=== PATIENT | female | born 1955 | race African-American/Black ===

== ENCOUNTER 2016-09-05 07:36 | Day surgery (SDC) | payer MEDICARE, MEDICAID ==
[~2016-09-05] VITALS: Ht 149.9 cm; Wt 71.2 kg
[~2016-09-05 07:36] MED LIST: AMLODIPINE5 MG PO; ATENOLOL25 MG PO; CYMBALTA20 MG PO; CYMBALTA60 MG PO; DILAUDID 2MG2 MG/TA1 PO; DILAUDID 2MG2 MG/TAB PO; LISINOP/HCTZ1 TAB PO; LORTAB 10-325 M1 TAB PO; METFORMIN500 M1 PO; PRILOSEC20 MG PO; TRAMADOL HCL50 MG PO
[2016-09-05 10:09] VITALS: BP 152/53
== END 2016-09-05 10:07 | disposition home or self-care (01) ==
LOC: ENDO 07:36 → ORM 17:45 → ENDO 17:45
PROVIDERS: ATTEND Internal Medicine Gastroenterology
PROC: 0DBK8ZX Excision of Ascending Colon, Via Natural or Artificial Opening Endoscopic, Diagnostic (ICD-10-PCS; principal; 2016-09-05)
PROC: 0DBN8ZX Excision of Sigmoid Colon, Via Natural or Artificial Opening Endoscopic, Diagnostic (ICD-10-PCS; 2016-09-05)
PROC: 0DBL8ZX Excision of Transverse Colon, Via Natural or Artificial Opening Endoscopic, Diagnostic (ICD-10-PCS; 2016-09-05)
PROC: 0DBP8ZX Excision of Rectum, Via Natural or Artificial Opening Endoscopic, Diagnostic (ICD-10-PCS; 2016-09-05)
DX: R19.5 Other fecal abnormalities (principal); K62.5 Hemorrhage of anus and rectum; K64.4 Residual hemorrhoidal skin tags; K63.5 Polyp of colon; K62.1 Rectal polyp; D12.2 Benign neoplasm of ascending colon; D12.5 Benign neoplasm of sigmoid colon; K22.70 Barrett's esophagus without dysplasia; K29.70 Gastritis, unspecified, without bleeding; K44.9 Diaphragmatic hernia without obstruction or gangrene; K21.9 Gastro-esophageal reflux disease without esophagitis; K64.8 Other hemorrhoids; K83.8 Other specified diseases of biliary tract; R14.0 Abdominal distension (gaseous); F32.9 Major depressive disorder, single episode, unspecified; M79.7 Fibromyalgia; E78.00 Pure hypercholesterolemia, unspecified; I10 Essential (primary) hypertension; Z86.010 Personal history of colon polyps

== ENCOUNTER 2017-01-17 10:29 | Emergency (ER) | payer MEDICARE, MEDICAID ==
[~2017-01-17] VITALS: Ht 149.9 cm; Wt 71.0 kg
[2017-01-17 11:26] LABS: HEMATOCRIT 41.7 % (37.0-47.0); HEMOGLOBIN 13.9 g/dl (12.0-16.0); IMMATURE GRANULOCYTES 0.5 % (0.0-1.0); MEAN CELL VOLUME 86.7 fL CALC (80.0-100.0); MEAN CORPUSCULAR HGB 28.9 pG CALC (26.0-32.0); MEAN CORPUSCULAR HGB CONC 33.3 g/L CALC (32.0-36.0); NEUT# 4.92 thou/uL (2.00-7.15); RED BLOOD COUNT 4.81 mill/uL (4.20-5.60); RED CELL DISTRI WIDTH 14.9 % (11.5-15.5)
[2017-01-17 11:38] LABS: ALBUMIN 4.6 g/dL (3.2-5.0); ALKALINE PHOSPHATASE 91 u/l (38-126); ANION GAP 18 (6-22 (CALC)); BILIRUBIN, TOTAL 1.3 mg/dL (0.0-1.4); BUN 13 mg/dL (8-23); BUN/CREATININE RATIO 19 (12-20 (CALC)); CALCIUM 9.9 mg/dL (8.4-10.2); CARBON DIOXIDE 22 mmol/l (22-30); CHLORIDE 106 mmol/l (95-108); CREATININE 0.7 mg/dL (0.5-1.0); GFR > 60 ML/MIN (>=60 (CALC)); GFR FOR AFR.AMER. > 60 ML/MIN (>=60 (CALC)); GLUCOSE 106 mg/dL (82-115); POTASSIUM 5.3 mmol/l (3.5-5.1); SGOT/AST 48 u/l (9-36); SGPT/ALT 50 u/l (11-66); SODIUM 141 mmol/l (137-146)
[2017-01-17 12:59] LABS: URINE BILIRUBIN - DIPSTICK NEGATIVE (NEGATIVE); URINE BLOOD DIPSTICK NEGATIVE (NEGATIVE); URINE CLARITY CLEAR; URINE COLOR YELLOW; URINE GLUCOSE - DIPSTICK NEGATIVE (NEGATIVE); URINE KETONE NEGATIVE (NEGATIVE); URINE LEUK ESTERASE NEGATIVE (NEGATIVE); URINE NITRITE - DIPSTICK NEGATIVE (Negative); URINE PROTEIN - DIPSTICK NEGATIVE (NEG-TRACE); URINE UROBILINOGEN - DIPSTICK 0.2 E.U./dL (0.2)
[2017-01-17] MEDS ORDERED: FLEXERIL5 MG PO (13:13)
[2017-01-17] MEDS ORDERED: MOTRIN400 MG PO (13:13)
[2017-01-17 13:30] VITALS: BP 189/87
[2017-01-22] MEDS ORDERED: FLEXERIL5 MG PO (12:53)
[2017-01-22] MEDS ORDERED: TRI-BUFF ASA325 M2 PO (12:53)
[2017-01-22] MEDS ORDERED: TRAMADOL HCL50 MG PO (12:54)
[2017-01-22] MEDS ORDERED: METHYLPREDNISOLONE ACETATE IJ (12:55)
== END 2017-01-17 13:35 | disposition home or self-care (01) ==
LOC: ED 10:29
PROVIDERS: Family Medicine
DX: M54.5 Low back pain (principal); I10 Essential (primary) hypertension; E11.9 Type 2 diabetes mellitus without complications; F17.210 Nicotine dependence, cigarettes, uncomplicated
CPT/HCPCS: Q9967

== ENCOUNTER 2017-01-23 09:56 | Day surgery (SDC) | payer MEDICARE, MEDICAID ==
[~2017-01-23] VITALS: Ht 149.9 cm; Wt 72.6 kg
[~2017-01-23 09:56] MED LIST changes: +FLEXERIL5 MG PO; +METHYLPREDNISOLONE ACETATE IJ; +MOTRIN400 MG PO; +TRI-BUFF ASA325 M2 PO
[2017-01-23 12:04] VITALS: BP 158/67
== END 2017-01-23 12:18 | disposition home or self-care (01) ==
LOC: ENDO 09:56 → ORM 11:45 → ENDO 12:18 → ORM 12:45
PROVIDERS: ATTEND Internal Medicine Gastroenterology
PROC: 0DB48ZX Excision of Esophagogastric Junction, Via Natural or Artificial Opening Endoscopic, Diagnostic (ICD-10-PCS; principal; 2017-01-23)
PROC: 0DB78ZX Excision of Stomach, Pylorus, Via Natural or Artificial Opening Endoscopic, Diagnostic (ICD-10-PCS; 2017-01-23)
DX: K22.70 Barrett's esophagus without dysplasia (principal); R14.0 Abdominal distension (gaseous); K21.9 Gastro-esophageal reflux disease without esophagitis; K29.50 Unspecified chronic gastritis without bleeding; K44.9 Diaphragmatic hernia without obstruction or gangrene; Q40.8 Other specified congenital malformations of upper alimentary tract; K25.9 Gastric ulcer, unspecified as acute or chronic, without hemorrhage or perforation

== ENCOUNTER 2017-02-27 11:56 | Day surgery (SDC) | payer MEDICARE, MEDICAID ==
[~2017-02-27 11:56] MED LIST changes: +ADULT ASPIRIN E81 MG PO; +DEXILANT30 MG PO; +FLONASE AL50 MCG/ACT NAB; -TRI-BUFF ASA325 M2 PO
== END 2017-02-27 12:15 | disposition home or self-care (01) ==
LOC: ENDO 11:56 → ORM 12:15 → ENDO 12:15
PROVIDERS: ATTEND Internal Medicine Gastroenterology
DX: Z53.8 Procedure and treatment not carried out for other reasons (principal); Z86.010 Personal history of colon polyps; R19.5 Other fecal abnormalities

== ENCOUNTER 2017-04-03 07:33 | Day surgery (SDC) | payer MEDICARE, MEDICAID ==
[~2017-04-03] VITALS: Ht 149.9 cm; Wt 71.2 kg
[2017-04-03 10:04] VITALS: BP 136/71
== END 2017-04-03 09:55 | disposition home or self-care (01) ==
LOC: ENDO 07:33 → ORM 11:15 → ENDO 11:15
PROVIDERS: ATTEND Internal Medicine Gastroenterology
PROC: 0DBK8ZX Excision of Ascending Colon, Via Natural or Artificial Opening Endoscopic, Diagnostic (ICD-10-PCS; principal; 2017-04-03)
PROC: 0DBL8ZX Excision of Transverse Colon, Via Natural or Artificial Opening Endoscopic, Diagnostic (ICD-10-PCS; 2017-04-03)
PROC: 0DBN8ZX Excision of Sigmoid Colon, Via Natural or Artificial Opening Endoscopic, Diagnostic (ICD-10-PCS; 2017-04-03)
PROC: 0DBP8ZX Excision of Rectum, Via Natural or Artificial Opening Endoscopic, Diagnostic (ICD-10-PCS; 2017-04-03)
DX: R19.5 Other fecal abnormalities (principal); R14.0 Abdominal distension (gaseous); K63.5 Polyp of colon; K62.1 Rectal polyp; D12.3 Benign neoplasm of transverse colon; K22.70 Barrett's esophagus without dysplasia; K29.70 Gastritis, unspecified, without bleeding; K44.9 Diaphragmatic hernia without obstruction or gangrene; K21.9 Gastro-esophageal reflux disease without esophagitis; I10 Essential (primary) hypertension; E78.00 Pure hypercholesterolemia, unspecified; F32.9 Major depressive disorder, single episode, unspecified; M79.7 Fibromyalgia; K64.8 Other hemorrhoids; K80.50 Calculus of bile duct without cholangitis or cholecystitis without obstruction; Z86.010 Personal history of colon polyps; K64.4 Residual hemorrhoidal skin tags; K57.90 Diverticulosis of intestine, part unspecified, without perforation or abscess without bleeding

== ENCOUNTER 2017-04-21 13:15 | Emergency (ER) | payer MEDICARE, MEDICAID ==
[~2017-04-21] VITALS: Ht 149.9 cm; Wt 72.0 kg
[2017-04-21] MEDS ORDERED: CEPHALEXIN500 MG PO (16:13)
[2017-04-21] MEDS ORDERED: INDOCIN25 MG PO (16:13)
[2017-04-21 16:25] VITALS: BP 176/95
== END 2017-04-21 16:26 | disposition home or self-care (01) ==
LOC: ED 13:15
DX: R09.1 Pleurisy (principal); I10 Essential (primary) hypertension; E11.9 Type 2 diabetes mellitus without complications; E78.00 Pure hypercholesterolemia, unspecified; K21.9 Gastro-esophageal reflux disease without esophagitis; K22.70 Barrett's esophagus without dysplasia; K44.9 Diaphragmatic hernia without obstruction or gangrene; F32.9 Major depressive disorder, single episode, unspecified

== ENCOUNTER 2018-02-08 16:00 | Outpatient (RCR) | payer MEDICARE, MEDICAID ==
[~2018-02-08 16:00] MED LIST changes: +CEPHALEXIN500 MG PO; +INDOCIN25 MG PO
== END 2018-02-08 17:00 | disposition home or self-care (01) ==
LOC: PT 16:00
PROVIDERS: ATTEND Physician Assistant Medical
DX: M54.42 Lumbago with sciatica, left side (principal); M17.2 Bilateral post-traumatic osteoarthritis of knee

== ENCOUNTER 2018-06-06 17:34 | Emergency (ER) | payer MEDICARE, MEDICAID ==
[~2018-06-06] VITALS: Ht 152.4 cm; Wt 72.0 kg
[2018-06-06] MEDS ORDERED: BACTROBAN TOP (18:36)
[2018-06-06] MEDS ORDERED: LAMISIL AT1 % EX (18:36)
[2018-06-06 18:43] VITALS: BP 171/98
== END 2018-06-06 18:46 | disposition home or self-care (01) ==
LOC: ED 17:34
DX: B35.4 Tinea corporis (principal)

== ENCOUNTER → 2018-06-28 | Outpatient (REF) | payer MEDICARE, MEDICAID ==
[~2018-06-28] VITALS: Ht 152.4 cm; Wt 75.7 kg
[~2018-06-28] MED LIST changes: +BACTROBAN TOP; +EQL IBUPROFEN200 MG PO; +LAMISIL AT1 % EX; +LISINOPRIL20 MG PO; +MOMETASONE50 MCG/ACT IN; +OXYCODONE HCL5 MG PO; +PHENERGAN25 MG/TAB PO; +SINGULAIR10 MG PO
[2018-06-28 09:26] VITALS: BP 163/81
== END | disposition home or self-care (01) ==
LOC: PO 08:46 → ORM 09:00
PROVIDERS: ATTEND Internal Medicine Gastroenterology
DX: K22.70 Barrett's esophagus without dysplasia (principal); K21.9 Gastro-esophageal reflux disease without esophagitis; I10 Essential (primary) hypertension; E11.9 Type 2 diabetes mellitus without complications; Z90.49 Acquired absence of other specified parts of digestive tract; Z98.890 Other specified postprocedural states

== ENCOUNTER → 2018-06-29 | Outpatient (REF) | payer MEDICARE, MEDICAID ==
[2018-06-29 10:12] LABS: BARBITURATES NEGATIVE (NEGATIVE); COCAINE NEGATIVE (NEGATIVE); METHADONE NEGATIVE (NEGATIVE); OXCYCODONE NEGATIVE (NEGATIVE); TETRAHYDROCANNABIONOL NEGATIVE (NEGATIVE); TRICYLIC ANTIDEPRESSANTS NEGATIVE (NEGATIVE)
[2018-06-29 10:15] VITALS: BP 159/105
== END | disposition home or self-care (01) ==
LOC: PAIN/MGT 09:49
PROVIDERS: ATTEND Anesthesiology Pain Medicine
DX: Z51.81 Encounter for therapeutic drug level monitoring (principal); Z79.891 Long term (current) use of opiate analgesic

== ENCOUNTER 2018-07-02 06:32 | Day surgery (SDC) | payer MEDICARE, MEDICAID ==
[~2018-07-02] VITALS: Ht 149.9 cm; Wt 75.7 kg
[~2018-07-02 06:32] MED LIST changes: -OXYCODONE HCL5 MG PO; -PHENERGAN25 MG/TAB PO
[2018-07-02 09:29] VITALS: BP 128/62
== END 2018-07-02 09:40 | disposition home or self-care (01) ==
LOC: ENDO 06:32 → ORM 08:15 → ENDO 08:15
PROVIDERS: ATTEND Internal Medicine Gastroenterology
PROC: 0DB48ZX Excision of Esophagogastric Junction, Via Natural or Artificial Opening Endoscopic, Diagnostic (ICD-10-PCS; principal; 2018-07-02)
DX: K21.9 Gastro-esophageal reflux disease without esophagitis (principal); K22.70 Barrett's esophagus without dysplasia; K29.70 Gastritis, unspecified, without bleeding; K25.9 Gastric ulcer, unspecified as acute or chronic, without hemorrhage or perforation; K44.9 Diaphragmatic hernia without obstruction or gangrene; I10 Essential (primary) hypertension

== ENCOUNTER 2018-07-08 08:48 | Inpatient (IN) | payer MEDICARE, MEDICAID ==
[~2018-07-08] VITALS: Ht 149.9 cm; Wt 80.0 kg
[2018-07-12] VITALS (9 sets, daily range): BP systolic 145–178; BP diastolic 78–96
--- NOTE | 2018-07-12 11:31 | NUR ---
PT ARRIVED ON UNIT VIA STRETCHER TRANSPORTED BY OR STAFF @ 1131, TRANSFERRED WITH MAX ASSIST TO BED, LETHARGIC AND DISORIENTED, UNABLE TO KEEP AWAKE, C/O RIGHT KNEE PAIN, DRESSING TO KNEE CDI WITH ICE PACK IN PLACE, IVF INFUSING, CALL MACKEY IN REACH, FAMILY MEMBERS ST BEDSIDE AND ENCOURAGED TO ALLOW PT TO REST FOR A WHILE, WILL CONTINUE TO MONITOR.
--- NOTE | 2018-07-12 16:00 | NUR ---
PT AWAKE ALERT AND ORIENTED SITTING UP IN BED, PHYSICAL THERAPIST EVAL AND TREATED, PAIN CONCERNS ADDRESSED, ASSISTED TO BY AND BACK TO BED, ALL NEEDS ADDRESSED.
--- NOTE | 2018-07-12 19:00 | NUR ---
RECEIVED REPORT FROM DAY NURSES. PT RESTING IN BED WITH FAMILY MEMBER AT BEDSIDE. NO NEEDS AT HTIS TIME. CALL MACKEY IN REACH. WILL CONTINUE TO MONITOR.
--- NOTE | 2018-07-12 19:00 | NUR ---
PT WATCHING TV WITH FAMILY MEMBER AT BEDSIDE.C/O MILD PAIN TO RIGHT KNEE. TRACE EDEMA NOTED TO KNEE MARILUZ BANDAGE IS CDI. ASSESMENT COMPLETED AT THIS TIME. PT UP TO BSC WITH WALKER, PT TOLERATED WELL. NO OTHER NEEDS AT THIS TIME. CALL MACKEY IN REACH. WILL CONTINUE TO MONITOR.
[2018-07-13] VITALS (7 sets, daily range): BP systolic 133–165; BP diastolic 60–93
--- NOTE | 2018-07-13 | NUR ---
PT RESTING QUIETLY IN BED. NO S/S OF DISTRESS NOTED. CALL MACKEY IN REACH. WILL CONTINUE TO MONITOR.
--- NOTE | 2018-07-13 04:10 | NUR ---
PT C/O PAIN 9/10 MEDICATED PER ORDER. NO OTHER NEEDS AT THIS TIME. DRESSING REMAINS CDI. CALL MACKEY IN REACH. WILL CONTINUE TO MONITOR.
[2018-07-13 06:03] LABS: HEMATOCRIT 34.3 % (37.0-47.0); HEMOGLOBIN 11.1 g/dl (12.0-16.0)
--- NOTE | 2018-07-13 07:50 | NUR ---
ASSSESSMENT IS COMPLETED: IV SITE IS FREE FROM REDNESS OR EDMEA. HR IS REG,PULSES ARE STRONG X4, ABD IS SOFT WITH ACTIVE BS. BREATH SOUNDS ARE CLEAR,BILATERALLY, DRESSING ON R KNEE IS CDI. PT IS C/O BEING TIGHT. REEASED SOME OF THE PRESSURE. FELT A LITTLE BETTER. FAMILY IN THE ROOM. CONTINUE TO OSEBRVE AND MONITOR.
--- NOTE | 2018-07-13 08:49 | NUR ---
THERAPY WAS FOCUSED ON GAIT TRAINING. UPON ARRIVAL TO PT. ROOM PT. WAS SEATED IN SEMI FOWLERS POSITION WITH PILLOW UNDER RIGHT KNEE. BEGAN TREATMENT WITH SET OF 2O ANKLE PUMPS, INSTRUCTED PT. TO TRY QUADS SETS BUT PT. UNABLE TO CONTRACT MUSCCLE, INSTRUCTED TO PERFORM GLUTE SETS, SET OF 10 WITH 10 SECOND HOLDS. PT. PERFORMED W/O TROUBLES. EDUCATED PT. ON IMPORTANCE OF PILLOW NOT TO BE UNDER THE KNEE TO WHERE IT WILL STAY IN FLEXION BUT TO PLACE PILLOW UNDER LOWER LEG SO KNEE CAN TRY AND EXTEND OUT. PT. SIT TO STAND(MIN A ) VC. FOR PROPER HAND PLACEMENT TO ASCEND TO A STANDING POSITION. PT. AMBULATED 25 FT. (CGA) WITH FWW WITH A STEP TO GAIT PATTERN. STAND TO SIT (MIN A) FIRST ATTEMPT PT. QUICKLY SAT WITH NO HAND PLACEMENT, EDUCATED PT. ON PROPER TECHNIQUES TO SIT, SECOND ATTEMPT WAS MUCH BETTER WITH HAND PLACEMENT IN PROPER POSITIONS AND DESCENDING TO A SEATED POSITION IN A CONTROLLED MANOR. SIT TO A SEATED POSITION (MIN A) WITH INOLVED KNEE TO POSITION OVER BED SIDE. PT. BED MOBILITY WAS INDEPENDENT. PT. WAS SEATED IN SEMI FOWLERS POSITON WITH CALL LIGHT AND CLARISA TABLE POSITIONED BY PT. SIDE I LEFT ROOM.
--- NOTE | 2018-07-13 12:00 | NUR ---
PT IS RELAXING IN BED WITH NO DISTRESS NOTED. IV SITE IS FREE FROM REDNESS OR EDEMA. FAMILY IN THE ROOM. CONTINUE TO OBSERVE AND MONITOR.
--- NOTE | 2018-07-13 13:42 | NUR ---
PM. PT WAS SEEN FOR GAIT TRAINING. SHE WAS OOB WITH MODIFIED INDEPENDENCE. SHE THEN STOOD UP USING B HANDS TO PUSH SELF UP. SHE AMBULATED BEDSIDE WITH RW AND CGA W/ BELT. PT WAS INSTRUCTED ON PROPER GAIT SHE WAS LIMPING. SHE DECIDED TO HEAD TO THE TOILET AND REQUESTED TO BE LEFT ALONE SHE MIGHT TAKE A WHILE. PT WAS INSTRUCTED TO PULL THE RED STRING WHEN DONE. DENISHA WAS ALSO INFORMED.
--- NOTE | 2018-07-13 16:00 | NUR ---
PT IS RELAXING HAS BEEN UP TO THE BATHROOM. HAVING PRESSURE PAIN ON THE LEG, CONTINUE TO OBSERVE AND MONITOR
[2018-07-14 04:35] VITALS: BP 158/84
[2018-07-14 04:49] LABS: HEMATOCRIT 35.8 % (37.0-47.0); HEMOGLOBIN 11.6 g/dl (12.0-16.0); IMMATURE GRANULOCYTES 0.3 % (0.0-5.0); MEAN CELL VOLUME 86.5 fL CALC (80.0-100.0); MEAN CORPUSCULAR HGB CONC 32.4 g/L CALC (32.0-36.0); NEUT# 7.27 thou/uL (2.00-7.15); RED BLOOD COUNT 4.14 mill/uL (4.20-5.60); RED CELL DISTRI WIDTH 14.7 % (11.5-15.5)
[2018-07-14 05:00] LABS: ALBUMIN 3.6 g/dL (3.2-5.0); AMYLASE 46 u/l (30-110); ANION GAP 13 (6-22 (CALC)); BILIRUBIN, TOTAL 1.9 mg/dL (0.0-1.4); BUN 10 mg/dL (8-23); BUN/CREATININE RATIO 13 (12-20 (CALC)); CARBON DIOXIDE 28 mmol/l (22-30); CHLORIDE 100 mmol/l (95-108); CREATININE 0.8 mg/dL (0.5-1.0); GFR > 60 ML/MIN (>=60 (CALC)); GFR FOR AFR.AMER. > 60 ML/MIN (>=60 (CALC)); LIPASE 58 u/l (23-300); MAGNESIUM 1.9 mg/dL (1.6-2.3); POTASSIUM 4.1 mmol/l (3.5-5.1); SODIUM 138 mmol/l (137-146); TOTAL PROTEIN 6.4 g/dL (6.3-8.2)
[2018-07-14 05:09] LABS: ALKALINE PHOSPHATASE 292 u/l (38-126); SGOT/AST 369 u/l (9-36)
--- NOTE | 2018-07-14 07:00 | NUR ---
SHIFT CHANGE REPORT, PT AWAKE ALERT AND ORIENTED, C/O RIGHT KNEE PAIN @ 7/10 AND STATED SHE HAD JUST GOTTEN UP TO BR, DRESSING TO KNEE CDI, MARILUZ WRAP AND PAM REMOVED, INCISION INTACT WITH SURGICAL GLUE, PEDAL PULSE STRONG, SWELLING OBSERVED TO SURGICAL LEG, ICE PACK APPLIED. WILL CONTINUE TO MONITOR, CALL MACKEY IN REACH.
[2018-07-14 07:51] VITALS: BP 147/60
--- NOTE | 2018-07-14 09:19 | NUR ---
Entered room with pt supine in bed. Pt reported increase in R knee pain today and given Tylenol this morning. Pt performed in bed therex quad sets, ankle pumps, and heel slides. Pt required Min-A supine <> sitting EOB. Pt then performed AROM knee flexion and extension with reported increase in pain. Pt performed sit <> stand with Min-A and was able to ambulate two steps forward with RW and CGA before increase in pain restricted her from being able to ambulate any further with RW and CGA. Pt then performed reverse ambulation two steps backward with RW and Min-A stand <> sit at EOB. Pt required Min-A sit <> supine back in bed. Pt reported nausea and severe R knee pain at EOB. Pt instructed on keeping pillow out from underneath R knee joint. Pt returned to supine in bed with pneumonic compression on LLE. Temi Cisneros, SPT
--- NOTE | 2018-07-14 12:00 | NUR ---
HAVING MEAL, NO NEW COMPLAIN, PAIN ISSUES ADDRESSED, CALL MACKEY IN REACH.
--- NOTE | 2018-07-14 14:56 | NUR ---
THERAPY WAS FOCUSED ON THEREPEUTIC EXERCISE AND GAIT TRAINING. PT. SUPINE IN BED UPON ARRIVING TO ROOM. PT. EXECUTED X20 ANKLE PUMPS, X10 HEEL SLIDES, X 10 QUAD SETS, X10 GLUTE SETS. PT. SUPINE TO SIT (INDEPENDENT), VC FOR CORRECT HAND PLACEMENT SHE ASCENDS TO STANDING POSITION. PT. AMBULATED 25 FT. (CGA) WITH FWW, STAND TO SIT (CGA) VC FOR CORRECT HAND PLACEMENT, HELP LIFTING INVOLVED EXTEMITY OVER BEDSIDE. PT. INDEPENDENT WITH BED MOBILITY. CLARISA TABLE AND CALL LIGHT BY PT. SIDE POSITIONED IN SEMI FOWLERS POSITION EXITING ROOM.
--- NOTE | 2018-07-14 15:22 | NUR ---
PHYSICAL THERAPIST TREATED, PT AMBULATED TO ROOM ENTRANCE IN HALLWAY AND BACK TO ROOM, ALL NEEDS MET AT THIS TIME.
[2018-07-14 15:45] VITALS: BP 138/80
[2018-07-14 19:31] VITALS: BP 121/65
--- NOTE | 2018-07-14 20:40 | NUR ---
Patient resting in bed. No S&S of distress. Patient states that her right knee is feeling stiff. Patient up to walk with walker and family assistance. Breath sounds clear. Abdomen soft. Patient given Lactulose prior to shift for constipation. Patient has positive bowel sounds in all 4 quadrants. Will continue to monitor patient. Awaiting patient to urinate to send off u/a w/ c&s.
[2018-07-15 01:10] LABS: URINE BILIRUBIN - DIPSTICK NEGATIVE (NEGATIVE); URINE BLOOD DIPSTICK TRACE-INTACT (NEGATIVE); URINE COLOR YELLOW; URINE GLUCOSE - DIPSTICK NEGATIVE (NEGATIVE); URINE KETONE NEGATIVE (NEGATIVE); URINE LEUK ESTERASE NEGATIVE (Negative); URINE NITRITE - DIPSTICK NEGATIVE (Negative); URINE PROTEIN - DIPSTICK NEGATIVE (NEG-TRACE); URINE SPECIFIC GRAVITY 1.015; URINE UROBILINOGEN - DIPSTICK 0.2 E.U./dL (0.2)
[2018-07-15 01:13] LABS: URINE CLARITY CLEAR
--- NOTE | 2018-07-15 02:48 | NUR ---
Patient resting in bed. Patient complains of pain in right knee. Patient given 1 percocet. Will continue to monitor patienet progress.
--- NOTE | 2018-07-15 04:30 | NUR ---
Patient resting in bed. No complaints. No S&S of distress. Patient has not had a BM. She feels as if she has to go but hasn't. Will continue to monitor patient progress.
[2018-07-15 04:33] VITALS: BP 150/86
[2018-07-15 06:29] LABS: HEMATOCRIT 33.5 % (37.0-47.0); HEMOGLOBIN 10.6 g/dl (12.0-16.0); IMMATURE GRANULOCYTES 0.5 % (0.0-5.0); MEAN CELL VOLUME 87.5 fL CALC (80.0-100.0); MEAN CORPUSCULAR HGB 27.7 pG CALC (26.0-32.0); MEAN CORPUSCULAR HGB CONC 31.6 g/L CALC (32.0-36.0); NEUT# 8.54 thou/uL (2.00-7.15); RED BLOOD COUNT 3.83 mill/uL (4.20-5.60); RED CELL DISTRI WIDTH 14.9 % (11.5-15.5)
[2018-07-15 06:51] LABS: ALBUMIN 3.3 g/dL (3.2-5.0); ALKALINE PHOSPHATASE 267 u/l (38-126); ANION GAP 11 (6-22 (CALC)); BILIRUBIN, TOTAL 0.8 mg/dL (0.0-1.4); BUN 13 mg/dL (8-23); BUN/CREATININE RATIO 16 (12-20 (CALC)); CARBON DIOXIDE 29 mmol/l (22-30); CHLORIDE 101 mmol/l (95-108); CREATININE 0.8 mg/dL (0.5-1.0); GFR > 60 ML/MIN (>=60 (CALC)); GFR FOR AFR.AMER. > 60 ML/MIN (>=60 (CALC)); POTASSIUM 3.8 mmol/l (3.5-5.1); SGOT/AST 68 u/l (9-36); SODIUM 138 mmol/l (137-146)
--- NOTE | 2018-07-15 07:19 | NUR ---
SHIFT CHANGE REPORT, PT AWAKE ALERT AND ORIEINTED SITTING UP IN BED, NO NEW COMPLAINS, FAMILY IN ROOM, CALL MACKEY IN REACH.
[2018-07-15 07:40] VITALS: BP 158/90
--- NOTE | 2018-07-15 08:48 | NUR ---
THERAPY FOCUSED ON THEREPEUTIC EXERCISE AND GAIT TRAINING. PT. POSITIONED IN SEMI- FOWLERS POSITION UPON ENTERING OM. PT. EXECUTED X10 QUAD SETS, X10 GLUTE SETS, X10 HEEL SLIDES GAINING INCREASED RANGE EACH ATTEMPT, ATTEMPTED X10 SAQ(MIN A). SUPINE TO SIT (MIN A) MANEUVERING RLE OVER BEDSIDE. SIT TO STAND (CGA) SLIGHT VC FOR CORRECT HANDPLACEMENT WHEN ASCENDING TO STANDING POSITION. PT. AMBULATED X40 FT. WITH FWW, STEP TO GAIT PATTERN. PT STAND TO SIT (CGA) SLIGHT TACTILE CUE FOR LEFT HAND TO REACH BACK FOR BED DESCEND TO A SEATED POSITION. SIT TO SUPINE(MIN A) WITH RLE UP OVER BEDSIDE. PT. BED MOBILITY (INDEPENDENT) SHE SCOOTED LATERALLY TO GET COMFORTABLE. POSITIONED IN SEMI FOWLERS POSITION WITH CLARISA DURON AND CALL LIGHT PLACED BY PATIENT BEDSIDE UPON EXITING ROOM.
[2018-07-15 11:09] VITALS: BP 134/53
[2018-07-15 19:29] VITALS: BP 152/83
--- NOTE | 2018-07-15 19:45 | NUR ---
SPOKE WITH DR. RODAS AND NOTIFIED HIM THAT PT. COULD NOT BE DISCHARGED TODAY D/T HOLD UP WITH INSURANCE WITH HH AND GETTING A WALKER; ORDER RECEIVED OKAY TO LEAVE IV SITE OUT;
--- NOTE | 2018-07-15 20:31 | NUR ---
ASSESSMENT COMPLETED; NO DISTRESS NOTED; RESP EVEN AND UNLABORED;PT. WITH NO IV SITE; MD AWARE; PENDING D/C TOMORROW; PT. C/O RIGHT KNEE PAIN 12/11; MEDICATED WITH ORDERED PERCOCET 1 TAB PER PTS REQUEST AND ORDER; WILL REASSESS; SNACK PROVIDED; DERMABOND IN PLACE TO RIGHT KNEE AND SWELLING NOTED; NO REDNESS OR DRAINAGE NOTED TO INCISION; EDUCATED ON USE OF I/S; PT. REPORTS SHE IS PASSING GAS, BUT STILL NO BM YET; MEDICATED WITH ORDERED LACTULOSE; ENCOURAGED TO CALL FOR ANY NEEDS; CALL LIGHT IS IN REACH; WILL CONTINUE TO MONITOR.
--- NOTE | 2018-07-15 22:16 | NUR ---
PT. SITTING UP WATCHING TV; NO DISTRESS NOTED; DENIES NEEDS; CALL LIGHT IS IN REACH.
[2018-07-15 23:57] VITALS: BP 146/80
--- NOTE | 2018-07-16 01:12 | NUR ---
PT. C/O RIGHT KNEE PAIN 01/11; MEDICATED WITH ORDERED PRN PERCOCET 2 TAB; WILL REASSESS; SNACK PROVIDED; DENIES FURTHER NEEDS; CALL LIGHT IS IN REACH.
--- NOTE | 2018-07-16 02:28 | NUR ---
PT. RESTING IN BED IN SEMI FOWLERS POSITION WITH EYES CLOSED; RESP EVEN AND UNLABORED; CALL LIGHT IS IN REACH; WILL CONTINUE TO MONITOR.
[2018-07-16 04:14] VITALS: BP 142/77
--- NOTE | 2018-07-16 05:35 | NUR ---
PT. RESTING IN BED WITH EYES CLOSED; NO DISTRESS NOTED; RESP EVEN AND UNLABORED; CALL LIGHT IS IN REACH;
[2018-07-16 07:20] VITALS: BP 155/75
--- NOTE | 2018-07-16 07:20 | NUR ---
ASSESSMENT IS COMPLETED: IV SITE IS FREE FROM REDNESS OR EDEMA. HR IS REG,PULSES ARE STRONG X4, ABD IS SOFT WITH ACTIVE BS. R LEG IS CDI. MINIMAL EDEMA NOTED. BREATH SOUNDS ARE CLEAR, BILATERALLY. CALL MACKEY WITHIN REACH. CONTINUE TO OBSERVE AND MONITOR.
[2018-07-16 09:02] VITALS: BP 155/75
--- NOTE | 2018-07-16 10:41 | NUR ---
PEDIATRIC HOSPITALIST SPOKE WITH [facility] AND [facility] FOR PT. ARRANGEMENTS HAVE BEEN MADE. WAITING ON FAMILY TO PAYROLL CLERK PT. ALL PAPERS WITH PT INCLUDING PRESCRIPTIONS
--- NOTE | 2018-07-16 11:00 | NUR ---
PT IS READY FOR DISCHARGE SIGNED FOR PAPERS ON 07/15/18. FAMILY IN THE ROOM. IV SITE WAS ALREADY TAKEN OUT ON 07/15/18 PT TRANSPORTED VIA WC. Discharge instructions given. Patient verbalizes understanding of same. Discharged in stable condition via Wheelchair to Home with family. All belongings sent with pt.
--- NOTE | 2018-07-16 11:46 | NUR ---
Patient seen prior to discharge. Patient was supine upon entering room. Therapy focused on gait training and therepeutic exercise. Patient executed heel slides x 10, ankle pumps x 20, quad sets x 10, glute sets x 10. Supine to sit patient was (SBA) VC for correct placement of legs over bedside. Sit to stand (CGA), slight VC for correct hand placement to push up from bedside. Ambulated 25 feet(CGA), VC to exert weight through Right lower extremity. Stand to sit (CGA) one VC for correct handpalcemt to a seated position. Sit to supine (SBA) slight trouble with maneuvering Right Lower extremity up over bedside. Bed mobilty patient is independent. Patient seated supine with head elevated with tray table and call light by patient side.
== END 2018-07-16 11:03 | disposition home health service (06) | DRG 470 ==
LOC: MS2 07-12 06:31
PROVIDERS: ADMIT Orthopaedic Surgery; ATTEND Internal Medicine Nephrology
PROC: 0SRC0J9 Replacement of Right Knee Joint with Synthetic Substitute, Cemented, Open Approach (ICD-10-PCS; principal; 2018-07-12)
DX: M17.0 Bilateral primary osteoarthritis of knee (principal); E11.9 Type 2 diabetes mellitus without complications; I10 Essential (primary) hypertension; E78.5 Hyperlipidemia, unspecified; K76.0 Fatty (change of) liver, not elsewhere classified; K59.00 Constipation, unspecified; R50.82 Postprocedural fever; Z79.84 Long term (current) use of oral hypoglycemic drugs
CPT/HCPCS: J0131; J1100; J2270

== ENCOUNTER 2018-07-28 22:03 | Emergency (ER) | payer MEDICARE, MEDICAID ==
[~2018-07-28] VITALS: Ht 149.9 cm; Wt 80.0 kg
[2018-07-28 22:44] LABS: HEMATOCRIT 39.4 % (37.0-47.0); IMMATURE GRANULOCYTES 0.6 % (0.0-5.0); MEAN CELL VOLUME 84.4 fL CALC (80.0-100.0); MEAN CORPUSCULAR HGB 27.8 pG CALC (26.0-32.0); NEUT# 4.76 thou/uL (2.00-7.15); RED BLOOD COUNT 4.67 mill/uL (4.20-5.60); RED CELL DISTRI WIDTH 14.1 % (11.5-15.5)
[2018-07-28 22:45] LABS: URINE BILIRUBIN - DIPSTICK NEGATIVE (NEGATIVE); URINE BLOOD DIPSTICK NEGATIVE (NEGATIVE); URINE COLOR YELLOW; URINE GLUCOSE - DIPSTICK NEGATIVE (NEGATIVE); URINE KETONE NEGATIVE (NEGATIVE); URINE LEUK ESTERASE NEGATIVE (NEGATIVE); URINE NITRITE - DIPSTICK NEGATIVE (Negative); URINE PROTEIN - DIPSTICK NEGATIVE (NEG-TRACE)
[2018-07-28] MEDS ORDERED: OXYCODONE HCL5 MG PO (22:54)
[2018-07-28 22:57] LABS: ALKALINE PHOSPHATASE 364 u/l (38-126); AMYLASE 111 u/l (30-110); BILIRUBIN, TOTAL 0.6 mg/dL (0.0-1.4); BUN 29 mg/dL (8-23); BUN/CREATININE RATIO 29 (12-20 (CALC)); CARBON DIOXIDE 21 mmol/l (22-30); CHLORIDE 101 mmol/l (95-108); GFR 56 ML/MIN (>=60 (CALC)); GFR FOR AFR.AMER. > 60 ML/MIN (>=60 (CALC)); LIPASE 517 u/l (23-300); SGOT/AST 66 u/l (9-36); SODIUM 138 mmol/l (137-146)
[2018-07-28 22:59] LABS: ALBUMIN 4.7 g/dL (3.2-5.0); ANION GAP 21 (6-22 (CALC)); POTASSIUM 4.8 mmol/l (3.5-5.1); TOTAL PROTEIN 8.1 g/dL (6.3-8.2)
[2018-07-28] MEDS ORDERED: PHENERGAN25 MG/TAB PO (23:33)
[2018-07-28 23:44] VITALS: BP 147/66
== END 2018-07-28 23:57 | disposition home or self-care (01) ==
LOC: ED 22:03
PROVIDERS: Family Medicine
DX: A08.4 Viral intestinal infection, unspecified (principal); E83.52 Hypercalcemia; D47.3 Essential (hemorrhagic) thrombocythemia; I10 Essential (primary) hypertension; E11.9 Type 2 diabetes mellitus without complications; Z87.11 Personal history of peptic ulcer disease

== ENCOUNTER 2018-08-05 20:04 | Observation (INO) | payer MEDICARE, MEDICAID ==
[~2018-08-05] VITALS: Ht 149.9 cm; Wt 75.0 kg
[~2018-08-05 20:04] MED LIST changes: +OXYCODONE HCL5 MG PO; +PHENERGAN25 MG/TAB PO
[2018-08-05 21:06] LABS: HEMOGLOBIN 13.3 g/dl (12.0-16.0); IMMATURE GRANULOCYTES 0.7 % (0.0-5.0); MEAN CORPUSCULAR HGB 27.9 pG CALC (26.0-32.0); MEAN CORPUSCULAR HGB CONC 33.3 g/L CALC (32.0-36.0); NEUT# 6.76 thou/uL (2.00-7.15); RED BLOOD COUNT 4.76 mill/uL (4.20-5.60); RED CELL DISTRI WIDTH 13.9 % (11.5-15.5)
[2018-08-05 21:32] LABS: ALKALINE PHOSPHATASE 322 u/l (38-126); AMYLASE 103 u/l (30-110); ANION GAP 26 (6-22 (CALC)); BILIRUBIN, TOTAL 0.7 mg/dL (0.0-1.4); BUN 34 mg/dL (8-23); BUN/CREATININE RATIO 26 (12-20 (CALC)); CARBON DIOXIDE 16 mmol/l (22-30); CHLORIDE 101 mmol/l (95-108); CREATININE 1.3 mg/dL (0.5-1.0); GFR 41 ML/MIN (>=60 (CALC)); GFR FOR AFR.AMER. 50 ML/MIN (>=60 (CALC)); LIPASE 258 u/l (23-300); POTASSIUM 4.6 mmol/l (3.5-5.1); SGOT/AST 73 u/l (9-36); SODIUM 139 mmol/l (137-146); TOTAL PROTEIN 8.4 g/dL (6.3-8.2)
[2018-08-06 00:20] VITALS: BP 154/88
[2018-08-06 00:41] LABS: URINE BILIRUBIN - DIPSTICK NEGATIVE (NEGATIVE); URINE BLOOD DIPSTICK NEGATIVE (NEGATIVE); URINE COLOR YELLOW; URINE GLUCOSE - DIPSTICK NEGATIVE (NEGATIVE); URINE KETONE NEGATIVE (NEGATIVE); URINE LEUK ESTERASE NEGATIVE (NEGATIVE); URINE NITRITE - DIPSTICK NEGATIVE (Negative); URINE PROTEIN - DIPSTICK NEGATIVE (NEG-TRACE); URINE SPECIFIC GRAVITY 1.015; URINE UROBILINOGEN - DIPSTICK 0.2 E.U./dL (0.2)
[2018-08-06 00:48] LABS: URINE BACTERIA FEW hpf; URINE EPITHELIAL CELLS FEW EPI/hpf (0-FEW); URINE RBC 0-2 RBC/hpf (0-5); URINE WBC 0-2 WBC/hpf (0-5)
[2018-08-06 03:52] VITALS: BP 148/81
[2018-08-06 05:37] LABS: HEMATOCRIT 35.8 % (37.0-47.0); HEMOGLOBIN 11.5 g/dl (12.0-16.0); IMMATURE GRANULOCYTES 0.5 % (0.0-5.0); MEAN CELL VOLUME 86.3 fL CALC (80.0-100.0); MEAN CORPUSCULAR HGB 27.7 pG CALC (26.0-32.0); MEAN CORPUSCULAR HGB CONC 32.1 g/L CALC (32.0-36.0); NEUT# 5.08 thou/uL (2.00-7.15); RED BLOOD COUNT 4.15 mill/uL (4.20-5.60); RED CELL DISTRI WIDTH 14.2 % (11.5-15.5)
[2018-08-06 05:52] LABS: BILIRUBIN, TOTAL 0.8 mg/dL (0.0-1.4); CREATININE 1.2 mg/dL (0.5-1.0); POTASSIUM 4.5 mmol/l (3.5-5.1); TOTAL PROTEIN 6.9 g/dL (6.3-8.2)
[2018-08-06 06:20] LABS: ALBUMIN 3.9 g/dL (3.2-5.0); MAGNESIUM 2.6 mg/dL (1.6-2.3)
[2018-08-06 07:56] VITALS: BP 130/81
[2018-08-06] MEDS ORDERED: PROTONIX40 M2 PO (10:23)
[2018-08-06] MEDS ORDERED: DOCUSATE CALCI240 MG (10:25)
[2018-08-06 15:10] VITALS: BP 150/80
[2018-08-06 19:40] VITALS: BP 131/66
[2018-08-07 04:10] VITALS: BP 148/79
[2018-08-07 05:04] LABS: HEMATOCRIT 32.5 % (37.0-47.0); HEMOGLOBIN 10.3 g/dl (12.0-16.0); IMMATURE GRANULOCYTES 0.4 % (0.0-5.0); MEAN CELL VOLUME 87.6 fL CALC (80.0-100.0); MEAN CORPUSCULAR HGB 27.8 pG CALC (26.0-32.0); MEAN CORPUSCULAR HGB CONC 31.7 g/L CALC (32.0-36.0); NEUT# 4.08 thou/uL (2.00-7.15); RED BLOOD COUNT 3.71 mill/uL (4.20-5.60); RED CELL DISTRI WIDTH 14.5 % (11.5-15.5)
[2018-08-07 06:08] LABS: ALBUMIN 3.6 g/dL (3.2-5.0); ALKALINE PHOSPHATASE 196 u/l (38-126); AMYLASE 95 u/l (30-110); ANION GAP 13 (6-22 (CALC)); BILIRUBIN, TOTAL 0.4 mg/dL (0.0-1.4); BUN 15 mg/dL (8-23); BUN/CREATININE RATIO 16 (12-20 (CALC)); CARBON DIOXIDE 23 mmol/l (22-30); CHLORIDE 108 mmol/l (95-108); CREATININE 0.9 mg/dL (0.5-1.0); GFR > 60 ML/MIN (>=60 (CALC)); GFR FOR AFR.AMER. > 60 ML/MIN (>=60 (CALC)); LIPASE 359 u/l (23-300); POTASSIUM 4.2 mmol/l (3.5-5.1); SGOT/AST 44 u/l (9-36); SODIUM 140 mmol/l (137-146); TOTAL PROTEIN 6.2 g/dL (6.3-8.2)
[2018-08-07 09:42] VITALS: BP 144/76
[2018-08-07 14:55] VITALS: BP 142/75
[2018-08-07] MEDS ORDERED: MEPERIDINE PO (15:38)
[2018-08-07] MEDS ORDERED: DILAUDID2 MG PO (17:27)
== END 2018-08-07 16:10 | disposition home or self-care (01) ==
LOC: ED 20:04 → ED-I 23:26 → ED 23:37 → MS2 23:41
PROVIDERS: Emergency Medicine; Internal Medicine Nephrology; ADMIT Internal Medicine; ATTEND Internal Medicine
DX: K85.90 Acute pancreatitis without necrosis or infection, unspecified (principal); K83.8 Other specified diseases of biliary tract; K76.0 Fatty (change of) liver, not elsewhere classified; I10 Essential (primary) hypertension; E11.9 Type 2 diabetes mellitus without complications; K29.70 Gastritis, unspecified, without bleeding; F17.210 Nicotine dependence, cigarettes, uncomplicated; E78.5 Hyperlipidemia, unspecified; M79.7 Fibromyalgia; F32.9 Major depressive disorder, single episode, unspecified; M25.561 Pain in right knee; K44.9 Diaphragmatic hernia without obstruction or gangrene; F41.1 Generalized anxiety disorder; Z96.651 Presence of right artificial knee joint; R10.84 Generalized abdominal pain; R11.0 Nausea
CPT/HCPCS: S0164

== ENCOUNTER 2018-12-22 06:27 | Day surgery (SDC) | payer MEDICARE, MEDICAID ==
[~2018-12-22] VITALS: Ht 149.9 cm; Wt 75.7 kg
[~2018-12-22 06:27] MED LIST changes: +CITALOPRAM20 M1; +DILAUDID2 MG PO; +DOCUSATE CALCI240 MG; +MEPERIDINE PO; +PROTONIX40 M2 PO
[2018-12-22 07:42] VITALS: BP 154/82
[2019-01-18] MEDS ORDERED: DICLOFENAC75 MG PO (11:49)
[2019-01-18] MEDS ORDERED: TRAMADOL HCL50 MG PO (11:50)
== END 2018-12-22 07:10 | disposition home or self-care (01) ==
LOC: ORM 06:27
PROVIDERS: ATTEND Anesthesiology Pain Medicine
PROC: 3E0T3BZ Introduction of Anesthetic Agent into Peripheral Nerves and Plexi, Percutaneous Approach (ICD-10-PCS; principal; 2018-12-22)
PROC: 3E0T33Z Introduction of Anti-inflammatory into Peripheral Nerves and Plexi, Percutaneous Approach (ICD-10-PCS; 2018-12-22)
PROC: 3E0T3BZ Introduction of Anesthetic Agent into Peripheral Nerves and Plexi, Percutaneous Approach (ICD-10-PCS; 2018-12-22)
PROC: 3E0T33Z Introduction of Anti-inflammatory into Peripheral Nerves and Plexi, Percutaneous Approach (ICD-10-PCS; 2018-12-22)
PROC: 3E0T3BZ Introduction of Anesthetic Agent into Peripheral Nerves and Plexi, Percutaneous Approach (ICD-10-PCS; 2018-12-22)
PROC: 3E0T33Z Introduction of Anti-inflammatory into Peripheral Nerves and Plexi, Percutaneous Approach (ICD-10-PCS; 2018-12-22)
PROC: BR161ZZ Fluoroscopy of Lumbar Facet Joint(s) using Low Osmolar Contrast (ICD-10-PCS; 2018-12-22)
DX: M54.5 Low back pain (principal); M12.9 Arthropathy, unspecified

== ENCOUNTER 2019-01-05 06:33 | Day surgery (SDC) | payer MEDICARE, MEDICAID ==
[~2019-01-05] VITALS: Ht 149.9 cm; Wt 78.0 kg
[2019-01-05] MEDS ORDERED: ZANTAC150 M1 PO (06:50)
[2019-01-05 08:40] VITALS: BP 136/77
[2019-01-05] MEDS ORDERED: TRAMADOL HCL50 MG PO (09:03)
[2019-01-05] MEDS ORDERED: DICLOFENAC75 MG PO (09:05)
[2019-01-18] MEDS ORDERED: DICLOFENAC75 MG PO (11:49)
[2019-01-18] MEDS ORDERED: TRAMADOL HCL50 MG PO (11:50)
== END 2019-01-05 09:15 | disposition home or self-care (01) ==
LOC: ORM 06:33
PROVIDERS: ATTEND Anesthesiology Pain Medicine
PROC: 3E0T3BZ Introduction of Anesthetic Agent into Peripheral Nerves and Plexi, Percutaneous Approach (ICD-10-PCS; principal; 2019-01-05)
PROC: 3E0T33Z Introduction of Anti-inflammatory into Peripheral Nerves and Plexi, Percutaneous Approach (ICD-10-PCS; 2019-01-05)
PROC: 3E0T3BZ Introduction of Anesthetic Agent into Peripheral Nerves and Plexi, Percutaneous Approach (ICD-10-PCS; 2019-01-05)
PROC: 3E0T33Z Introduction of Anti-inflammatory into Peripheral Nerves and Plexi, Percutaneous Approach (ICD-10-PCS; 2019-01-05)
DX: M54.5 Low back pain (principal); M12.9 Arthropathy, unspecified

== ENCOUNTER 2020-06-08 19:39 | Emergency (ER) | payer MEDICARE, MEDICAID ==
[~2020-06-08] VITALS: Ht 149.9 cm; Wt 75.0 kg
[~2020-06-08 19:39] MED LIST changes: +DICLOFENAC75 MG PO; +GLIPIZIDE5 MG PO; +ZANTAC150 M1 PO
[2020-06-08 20:45] LABS: HEMATOCRIT 42.5 % (37.0-47.0); HEMOGLOBIN 14.1 g/dl (12.0-16.0); IMMATURE GRANULOCYTES 0.4 % (0.0-5.0); MEAN CELL VOLUME 85.2 fL CALC (80.0-100.0); MEAN CORPUSCULAR HGB 28.3 pG CALC (26.0-32.0); MEAN CORPUSCULAR HGB CONC 33.2 g/dL CAL (32.0-36.0); NEUT# 3.61 thou/uL (2.00-7.15); RED BLOOD COUNT 4.99 mill/uL (4.20-5.60); RED CELL DISTRI WIDTH 13.5 % (11.5-15.5)
[2020-06-08 20:46] LABS: URINE BILIRUBIN - DIPSTICK NEGATIVE (NEGATIVE); URINE BLOOD DIPSTICK MODERATE (NEGATIVE); URINE COLOR YELLOW; URINE GLUCOSE - DIPSTICK >=1000 mg/dL (NEGATIVE); URINE KETONE NEGATIVE (NEGATIVE); URINE LEUK ESTERASE NEGATIVE (NEGATIVE); URINE NITRITE - DIPSTICK NEGATIVE (Negative); URINE PROTEIN - DIPSTICK NEGATIVE (NEG-TRACE); URINE SPECIFIC GRAVITY <=1.005; URINE UROBILINOGEN - DIPSTICK 0.2 E.U./dL (0.2)
[2020-06-08 20:58] LABS: URINE RBC 0-2 RBC/hpf (0-5); URINE SQUAMOUS EPITHELIAL CELL FEW EPI/hpf (0-FEW)
[2020-06-08 21:06] LABS: ALBUMIN 4.5 g/dL (3.2-5.0); ALKALINE PHOSPHATASE 124 u/l (38-126); ANION GAP 17 (6-22 (CALC)); BILIRUBIN, TOTAL 0.5 mg/dL (0.0-1.4); BUN 15 mg/dL (8-23); BUN/CREATININE RATIO 17 (12-20 (CALC)); CARBON DIOXIDE 20 mmol/l (22-30); CHLORIDE 99 mmol/l (95-108); CREATININE 0.9 mg/dL (0.5-1.0); GFR > 60 ML/MIN (>=60 (CALC)); GFR FOR AFR.AMER. > 60 ML/MIN (>=60 (CALC)); POTASSIUM 4.3 mmol/l (3.5-5.1); SGOT/AST 35 u/l (9-36); SODIUM 132 mmol/l (137-146); TOTAL PROTEIN 7.5 g/dL (6.3-8.2)
[2020-06-08] MEDS ORDERED: OZEMPIC2 MG/1.5 M (22:17)
[2020-06-08] MEDS ORDERED: AMOXICILLIN500 MG PO (22:58)
[2020-06-08 23:21] VITALS: BP 124/75
== END 2020-06-08 23:21 | disposition home or self-care (01) ==
LOC: ED 19:39
PROVIDERS: Emergency Medicine
DX: H66.93 Otitis media, unspecified, bilateral (principal); E11.65 Type 2 diabetes mellitus with hyperglycemia; I10 Essential (primary) hypertension; F32.9 Major depressive disorder, single episode, unspecified; E78.00 Pure hypercholesterolemia, unspecified; Z79.84 Long term (current) use of oral hypoglycemic drugs; Z87.11 Personal history of peptic ulcer disease

== ENCOUNTER 2020-09-29 01:56 | Emergency (ER) | payer MEDICARE, MEDICAID ==
[~2020-09-29] VITALS: Ht 149.9 cm; Wt 76.0 kg
[~2020-09-29 01:56] MED LIST changes: +AMOXICILLIN500 MG PO; +OZEMPIC2 MG/1.5 M
[2020-09-29 02:38] LABS: HEMATOCRIT 41.5 % (37.0-47.0); HEMOGLOBIN 13.8 g/dl (12.0-16.0); IMMATURE GRANULOCYTES 0.3 % (0.0-5.0); MEAN CELL VOLUME 84.2 fL CALC (80.0-100.0); MEAN CORPUSCULAR HGB CONC 33.3 g/dL CAL (32.0-36.0); NEUT# 4.96 thou/uL (2.00-7.15); RED BLOOD COUNT 4.93 mill/uL (4.20-5.60); RED CELL DISTRI WIDTH 12.8 % (11.5-15.5)
[2020-09-29 02:54] LABS: ALBUMIN 4.5 g/dL (3.2-5.0); BILIRUBIN, TOTAL 0.4 mg/dL (0.0-1.4); BUN 20 mg/dL (8-23); BUN/CREATININE RATIO 26 (12-20 (CALC)); CHLORIDE 91 mmol/l (95-108); CREATININE 0.8 mg/dL (0.5-1.0); GFR > 60 ML/MIN (>=60 (CALC)); GFR FOR AFR.AMER. > 60 ML/MIN (>=60 (CALC)); POTASSIUM 4.8 mmol/l (3.5-5.1); SGOT/AST 36 u/l (9-36); SODIUM 130 mmol/l (137-146); TOTAL PROTEIN 7.8 g/dL (6.3-8.2)
[2020-09-29 02:56] LABS: INTERNATIONAL NORMALIZED RATIO 0.9 RATIO (0.7-1.3); PROTHROMBIN TIME 9.2 SECONDS (9.0-12.5)
[2020-09-29 02:59] LABS: ALKALINE PHOSPHATASE 254 u/l (38-126); ANION GAP 19 (6-22 (CALC)); CARBON DIOXIDE 25 mmol/l (22-30)
[2020-09-29 03:50] VITALS: BP 192/76
== END 2020-09-29 03:42 | disposition short-term general hospital (02) ==
LOC: ED 01:56
PROVIDERS: Emergency Medicine
DX: R42 Dizziness and giddiness (principal); R53.1 Weakness; E11.65 Type 2 diabetes mellitus with hyperglycemia; I10 Essential (primary) hypertension; F32.9 Major depressive disorder, single episode, unspecified; E78.00 Pure hypercholesterolemia, unspecified; Z87.11 Personal history of peptic ulcer disease; Z79.84 Long term (current) use of oral hypoglycemic drugs

== ENCOUNTER 2021-04-25 13:14 | Emergency (ER) | payer MEDICARE, MEDICAID | END 2021-04-25 13:25 | disposition left against medical advice (07) | LOC: ED 13:14 → LWOBS 13:24 → ED 13:25 | DX: Z53.21 Procedure and treatment not carried out due to patient leaving prior to being seen by health care provider (principal) ==

== ENCOUNTER 2022-07-13 12:04 | Observation (INO) | payer MEDICARE, MEDICAID ==
[~2022-07-13] VITALS: Ht 149.9 cm; Wt 71.7 kg
[2022-07-13] VITALS (46 sets, daily range): BP systolic 133–214; BP diastolic 59–118
[2022-07-13 12:42] LABS: BASO% 0.5 % (0-3); EOS% 0.7 % (0-8); IMMATURE GRANULOCYTES 0.3 % (0.0-5.0); LYMPH% 36.2 % (15-41); MEAN CELL VOLUME 85.8 fL CALC (80.0-100.0); MEAN CORPUSCULAR HGB CONC 32.6 g/dL CAL (32.0-36.0); MONO% 7.7 % (2-13); NEUT# 5.11 thou/uL (2.00-7.15); NEUT% 54.6 % (42-76); RED BLOOD COUNT 5.36 mill/uL (4.20-5.60)
[2022-07-13 12:54] LABS: ALBUMIN 4.8 g/dL (3.2-5.0); BILIRUBIN, TOTAL 0.6 mg/dL (0.02-1.3); BUN 28 mg/dL (8-23); BUN/CREATININE RATIO 30 (12-20 (CALC)); CHLORIDE 99 mmol/l (95-108); GFR FOR AFR.AMER. > 60 ML/MIN (>=60 (CALC)); GFR OTHER RACES 55 ML/MIN (>=60 (CALC)); POTASSIUM 4.7 mmol/l (3.5-5.1); SGOT/AST 44 u/l (9-36); TOTAL PROTEIN 7.8 g/dL (6.3-8.2)
[2022-07-13 13:00] LABS: ALKALINE PHOSPHATASE 160 u/l (38-126); ANION GAP 19 (6-22 (CALC)); CARBON DIOXIDE 19 mmol/l (22-30); SODIUM 132 mmol/l (137-146)
[2022-07-13] MEDS ORDERED: LINZESS72 MCG PO (15:56)
[2022-07-13] MEDS ORDERED: OMEPRAZOLE DR40 MG PO (15:57)
[2022-07-13] MEDS ORDERED: TRAMADOL HCL50 MG PO (15:58)
[2022-07-13] MEDS ORDERED: OZEMPIC2 MG/1.5 M SC (16:00)
[2022-07-13] MEDS ORDERED: MONTELUKAST SOD10 MG PO (16:01)
[2022-07-13] MEDS ORDERED: NORVASC5 M1 PO (16:01)
[2022-07-13] MEDS ORDERED: MOTEGRITY1 MG (16:01)
[2022-07-13] MEDS ORDERED: GABAPENTIN TINY50 MG PO (16:02)
[2022-07-13] MEDS ORDERED: FAMOTIDINE20 M1 PO (16:03)
[2022-07-14] VITALS (38 sets, daily range): BP systolic 123–175; BP diastolic 61–135
[2022-07-14 06:23] LABS: HEMATOCRIT 42.4 % (37.0-47.0); HEMOGLOBIN 13.7 g/dl (12.0-16.0); MEAN CELL VOLUME 86.4 fL CALC (80.0-100.0); MEAN CORPUSCULAR HGB 27.9 pG CALC (26.0-32.0); MEAN CORPUSCULAR HGB CONC 32.3 g/dL CAL (32.0-36.0); RED BLOOD COUNT 4.91 mill/uL (4.20-5.60); RED CELL DISTRI WIDTH 13.2 % (11.5-15.5)
[2022-07-14 06:52] LABS: ALKALINE PHOSPHATASE 101 u/l (38-126); ANION GAP 11 (6-22 (CALC)); BILIRUBIN, TOTAL 0.8 mg/dL (0.02-1.3); BUN 15 mg/dL (8-23); BUN/CREATININE RATIO 21 (12-20 (CALC)); CALCULATED LDLCHOLESTEROL 147 mg/dL (62-129 (CALC)); CARBON DIOXIDE 24 mmol/l (22-30); CHLORIDE 107 mmol/l (95-108); CHOLESTEROL HDL RATIO 5.4 (<4.4 (CALC)); CREATININE 0.7 mg/dL (0.5-1.0); GFR FOR AFR.AMER. > 60 ML/MIN (>=60 (CALC)); GFR OTHER RACES > 60 ML/MIN (>=60 (CALC)); HDL CHOLESTEROL 49 mg/dL (39.0-59.0); POTASSIUM 4.2 mmol/l (3.5-5.1); SGOT/AST 26 u/l (9-36); SODIUM 138 mmol/l (137-146); TOTAL CHOLESTEROL 264 mg/dl (0-199); TOTAL PROTEIN 6.8 g/dL (6.3-8.2); TOTAL TRIGLYCERIDES 339 mg/dl (0-149); VLDL CHOLESTROL 68 mg/dl (1-41 (CALC))
[2022-07-14] MEDS ORDERED: LANTUS SOL100 UNIT/M SC (09:55)
== END 2022-07-14 10:30 | disposition home or self-care (01) ==
LOC: ED 12:04 → ED-I 14:30 → ED 14:48 → ED-I 14:49 → ICU 14:49 → ED-I 14:50 → ICU 07-14 00:59
PROVIDERS: Family Medicine; ADMIT Internal Medicine; ATTEND Internal Medicine
DX: E11.65 Type 2 diabetes mellitus with hyperglycemia (principal); I10 Essential (primary) hypertension; K21.9 Gastro-esophageal reflux disease without esophagitis; E78.00 Pure hypercholesterolemia, unspecified; M10.9 Gout, unspecified; M19.90 Unspecified osteoarthritis, unspecified site; F32.A Depression, unspecified; Z79.85 Long-term (current) use of injectable non-insulin antidiabetic drugs; Z87.11 Personal history of peptic ulcer disease; Z87.891 Personal history of nicotine dependence
CPT/HCPCS: J1650; S0164

== ENCOUNTER 2022-10-25 13:09 | Emergency (ER) | payer MEDICARE, MEDICAID ==
[~2022-10-25] VITALS: Ht 149.9 cm; Wt 70.3 kg
[~2022-10-25 13:09] MED LIST changes: +FAMOTIDINE20 M1 PO; +GABAPENTIN TINY50 MG PO; +LANTUS SOL100 UNIT/M SC; +LINZESS72 MCG PO; +MONTELUKAST SOD10 MG PO; +MOTEGRITY1 MG; +NORVASC5 M1 PO; +OMEPRAZOLE DR40 MG PO; +OZEMPIC2 MG/1.5 M SC
[2022-10-25 14:30] VITALS: BP 149/85
[2022-10-25 14:45] VITALS: BP 154/81
[2022-10-25 15:00] VITALS: BP 142/79
[2022-10-25 15:15] VITALS: BP 148/82
[2022-10-25] MEDS ORDERED: FLEXERIL5 M1 PO (15:29)
[2022-10-25] MEDS ORDERED: HYDROCO/APAP1 TA9 PO (15:29)
[2022-10-25] MEDS ORDERED: VOLTAREN1%GEL TOP (15:29)
[2022-10-25 15:30] VITALS: BP 139/69
[2022-10-25 15:51] VITALS: BP 139/69
== END 2022-10-25 16:07 | disposition home or self-care (01) ==
LOC: ED 13:09
DX: M25.562 Pain in left knee (principal); I10 Essential (primary) hypertension; E11.9 Type 2 diabetes mellitus without complications; E78.00 Pure hypercholesterolemia, unspecified; F32.A Depression, unspecified; M79.7 Fibromyalgia; Z79.4 Long term (current) use of insulin

== ENCOUNTER 2023-01-04 20:21 | Emergency (ER) | payer MEDICARE, MEDICAID ==
[2023-01-04] VITALS (9 sets, daily range): BP systolic 121–215; BP diastolic 49–96
[~2023-01-04] VITALS: Ht 149.9 cm; Wt 70.0 kg
[~2023-01-04 20:21] MED LIST changes: +FLEXERIL5 M1 PO; +HYDROCO/APAP1 TA9 PO; +VOLTAREN1%GEL TOP
[2023-01-04 21:26] LABS: BASO% 0.3 % (0-3); EOS% 1.1 % (0-8); HEMATOCRIT 43.4 % (37.0-47.0); HEMOGLOBIN 14.5 g/dl (12.0-16.0); IMMATURE GRANULOCYTES 0.3 % (0.0-5.0); LYMPH% 48.3 % (15-41); MEAN CELL VOLUME 84.9 fL CALC (80.0-100.0); MEAN CORPUSCULAR HGB 28.4 pG CALC (26.0-32.0); MEAN CORPUSCULAR HGB CONC 33.4 g/dL CAL (32.0-36.0); MONO% 6.9 % (2-13); NEUT# 3.39 thou/uL (2.00-7.15); NEUT% 43.1 % (42-76); RED BLOOD COUNT 5.11 mill/uL (4.20-5.60); RED CELL DISTRI WIDTH 13.4 % (11.5-15.5)
[2023-01-04 21:35] LABS: ALBUMIN 4.2 g/dL (3.2-5.0); AMYLASE 80 u/l (30-110); ANION GAP 15 (6-22 (CALC)); BILIRUBIN, TOTAL 0.5 mg/dL (0.02-1.3); BUN 21 mg/dL (8-23); BUN/CREATININE RATIO 25 (12-20 (CALC)); CARBON DIOXIDE 22 mmol/l (22-30); CHLORIDE 102 mmol/l (95-108); CREATININE 0.8 mg/dL (0.5-1.0); GFR FOR AFR.AMER. > 60 ML/MIN (>=60 (CALC)); GFR OTHER RACES > 60 ML/MIN (>=60 (CALC)); POTASSIUM 4.6 mmol/l (3.5-5.1); SGOT/AST 40 u/l (9-36); SODIUM 134 mmol/l (137-146); TOTAL PROTEIN 7.4 g/dL (6.3-8.2)
[2023-01-04 21:44] LABS: ALKALINE PHOSPHATASE 158 u/l (38-126)
[2023-01-04 22:29] LABS: URINE BILIRUBIN - DIPSTICK Negative (NEGATIVE); URINE BLOOD DIPSTICK Negative (NEGATIVE); URINE GLUCOSE - DIPSTICK >=1000 mg/dL (NEGATIVE); URINE KETONE Negative (NEGATIVE); URINE LEUK ESTERASE Negative (NEGATIVE); URINE NITRITE - DIPSTICK Negative (Negative); URINE PROTEIN - DIPSTICK Negative (NEG-TRACE); URINE UROBILINOGEN - DIPSTICK 0.2 E.U./dL (0.2)
[2023-01-04 22:31] LABS: URINE COLOR Yellow
[2023-01-05 00:01] VITALS: BP 146/67
== END 2023-01-05 00:14 | disposition home or self-care (01) ==
LOC: ED 20:21
PROVIDERS: Emergency Medicine
DX: E11.65 Type 2 diabetes mellitus with hyperglycemia (principal); I10 Essential (primary) hypertension; Z87.11 Personal history of peptic ulcer disease; E78.00 Pure hypercholesterolemia, unspecified; Z79.4 Long term (current) use of insulin; Z20.822 Contact with and (suspected) exposure to COVID-19

== ENCOUNTER 2023-12-21 06:45 | Day surgery (SDC) | payer MEDICARE, MEDICAID ==
[~2023-12-21] VITALS: Ht 149.9 cm; Wt 64.4 kg
[~2023-12-21 06:45] MED LIST changes: +DIFLUCAN100 M1 PO; +FARXIGA10 MG PO; +PEPCID40 MG PO
[2023-12-21] MEDS ORDERED: FAMOTIDINE 10MG/ML 2ML SDV IV ONE (06:48)
[2023-12-21] MEDS ORDERED: SODIUM CHLORIDE 0.9% 1,000 ML IV ONE (06:48)
[2023-12-21] MEDS ORDERED: STERILE WATER FOR IRRIGATION 1,000 ML BTL IR ONE (07:02)
[2023-12-21 08:27] VITALS: BP 165/91
[2023-12-21] MEDS ORDERED: PROPOFOL 200 MG/20 ML VIAL IV ONE (11:41)
[2023-12-21] MEDS ORDERED: LIDOCAINE HCL 2% 2ML SDV IV ONE (11:41)
== END 2023-12-21 08:31 | disposition home or self-care (01) ==
LOC: ORM 06:45
PROVIDERS: ATTEND Internal Medicine Gastroenterology
PROC: 0DBP8ZX Excision of Rectum, Via Natural or Artificial Opening Endoscopic, Diagnostic (ICD-10-PCS; principal; 2023-12-21)
PROC: 0DB48ZX Excision of Esophagogastric Junction, Via Natural or Artificial Opening Endoscopic, Diagnostic (ICD-10-PCS; 2023-12-21)
PROC: 0DB78ZX Excision of Stomach, Pylorus, Via Natural or Artificial Opening Endoscopic, Diagnostic (ICD-10-PCS; 2023-12-21)
DX: K22.70 Barrett's esophagus without dysplasia (principal); K21.00 Gastro-esophageal reflux disease with esophagitis, without bleeding; K29.50 Unspecified chronic gastritis without bleeding; K44.9 Diaphragmatic hernia without obstruction or gangrene; K31.89 Other diseases of stomach and duodenum; Z12.11 Encounter for screening for malignant neoplasm of colon; K63.5 Polyp of colon; K64.8 Other hemorrhoids; I10 Essential (primary) hypertension; E11.9 Type 2 diabetes mellitus without complications; Z86.010 Personal history of colon polyps; Z87.891 Personal history of nicotine dependence; Z79.4 Long term (current) use of insulin; Z79.899 Other long term (current) drug therapy; Z79.85 Long-term (current) use of injectable non-insulin antidiabetic drugs

== ENCOUNTER 2024-07-26 13:29 | Emergency (ER) | payer MEDICARE, MEDICAID ==
[2024-07-26] VITALS (10 sets, daily range): BP systolic 122–157; BP diastolic 60–91
[~2024-07-26] VITALS: Ht 149.9 cm; Wt 66.2 kg
[2024-07-26 13:53] LABS: BASO% 0.4 % (0-3); EOS% 1.1 % (0-8); HEMATOCRIT 42.5 % (37.0-47.0); HEMOGLOBIN 14.1 g/dl (12.0-16.0); IMMATURE GRANULOCYTES 0.2 % (0.0-5.0); MEAN CELL VOLUME 87.1 fL CALC (80.0-100.0); MEAN CORPUSCULAR HGB 28.9 pG CALC (26.0-32.0); MEAN CORPUSCULAR HGB CONC 33.2 g/dL CAL (32.0-36.0); MONO% 7.5 % (2-13); NEUT# 7.08 thou/uL (2.00-7.15); NEUT% 60.8 % (42-76); RED BLOOD COUNT 4.88 mill/uL (4.20-5.60); RED CELL DISTRI WIDTH 13.8 % (11.5-15.5)
[2024-07-26] MEDS ORDERED: KETOROLAC TROMETHAMINE 15 MG/ML SDV IV ONE (14:00)
[2024-07-26 14:02] LABS: ALBUMIN 4.5 g/dL (3.2-5.0); CREATININE 1.2 mg/dL (0.5-1.0); TOTAL PROTEIN 7.6 g/dL (6.3-8.2)
[2024-07-26 16:08] LABS: URINE BILIRUBIN - DIPSTICK Negative (NEGATIVE); URINE BLOOD DIPSTICK Negative (NEGATIVE); URINE COLOR Yellow; URINE GLUCOSE - DIPSTICK >=1000 mg/dL (NEGATIVE); URINE KETONE Negative (NEGATIVE); URINE LEUK ESTERASE Negative (NEGATIVE); URINE NITRITE - DIPSTICK Negative (Negative); URINE PROTEIN - DIPSTICK Negative (NEG-TRACE); URINE SPECIFIC GRAVITY 1.015
[2024-07-26] MEDS ORDERED: LIDOCAINE VISCOUS 2% 15 ML UDC PO ONE (17:40)
[2024-07-26] MEDS ORDERED: ALUM & MAG HYDROX-SIMETHICONE 30 ML PO ONE (17:40)
[2024-07-26] MEDS ORDERED: PROTONIX40 M2 PO (18:01)
== END 2024-07-26 18:18 | disposition home or self-care (01) ==
LOC: ED 13:29
PROVIDERS: Family Medicine
DX: R10.11 Right upper quadrant pain (principal); I10 Essential (primary) hypertension; E11.9 Type 2 diabetes mellitus without complications; E78.5 Hyperlipidemia, unspecified; F32.A Depression, unspecified; K21.9 Gastro-esophageal reflux disease without esophagitis; Z87.11 Personal history of peptic ulcer disease; Z90.49 Acquired absence of other specified parts of digestive tract; Z79.85 Long-term (current) use of injectable non-insulin antidiabetic drugs
CPT/HCPCS: J1885; Q9967